=== PATIENT | female | born 1975 | race Caucasian/White ===

== ENCOUNTER 2017-08-24 20:07 | Emergency (ER) | payer SELFPAY ==
[2017-08-24 20:08] VITALS: BMI 24.0
--- NOTE | 2017-08-24 20:52 | C.PDOC ---
History Of Present Illness 42 year old female presents to the ED c/o back pain that is worse on her left side and radiates down to her knee for approximately 1 month. Patient states that during the past 3 days the pain got worse, she took Advil and Tylenol but with no significant relief. She denies any fall, trauma, injury, weakness, numbness, or urinary symptoms. Time Seen by Provider: 08/24/17 20:29 Chief Complaint (Nursing): Back Pain History Per: Patient History/Exam Limitations: no limitations Onset/Duration Of Symptoms: Days Current Symptoms Are (Timing): Still Present Quality Of Discomfort: "Pain" Previous Symptoms: Back Pain Associated Symptoms: None Exacerbating Factor(s): Movement Recent travel outside of the [place]: No Additional History Per: Patient Past Medical History Reviewed: Historical Data, Nursing Documentation, Vital Signs Vital Signs: Last Vital Signs Temp 97.2 F L 08/24/17 20:23 Pulse 84 08/24/17 20:23 Resp 14 08/24/17 20:23 BP 141/88 08/24/17 20:23 Pulse Ox 99 08/24/17 20:57 - Medical History PMH: Depression (brother recently ), HTN (htn runs in family; htn when last had sx) Other Surgeries: ovarian cystectomy - [facility] Procedures LOCAL DESTR OVA LES NEC (01/22/15) OTHER AND UNSPECIFIED VAGINAL HYSTERECTOMY (01/22/15) TOTAL UNILAT SALPINGECT (01/22/15) Family History: States: Unknown Family Hx - Social History Hx Tobacco Use: No Hx Alcohol Use: No Hx Substance Use: No - Immunization History Hx Tetanus Toxoid Vaccination: No Hx Influenza Vaccination: No Hx Pneumococcal Vaccination: No Review Of Systems Constitutional: Negative for: Fever Respiratory: Negative for: Shortness of Breath Gastrointestinal: Negative for: Abdominal Pain Genitourinary: Negative for: Dysuria, Frequency, Incontinence Musculoskeletal: Positive for: Back Pain Neurological: Negative for: Weakness, Numbness Physical Exam - Physical Exam Appears: Non-toxic, No Acute Distress Skin: Normal Color, Warm, Dry Head: Atraumatic, Normacephalic Eye(s): bilateral: Normal Inspection Oral Mucosa: Moist Neck: Normal ROM, Supple Chest: Symmetrical Cardiovascular: Rhythm Regular, No Murmur Respiratory: No Accessory Muscle Use Gastrointestinal/Abdominal: Soft, No Tenderness Back: Normal Inspection (no rash, no swelling, no ecchymosis), No CVA Tenderness , No Vertebral Tenderness, No Decreased ROM, Paraspinal Tenderness (left side) Extremity: Bilateral: Atraumatic, Normal Color And Temperature, Normal ROM Neurological/Psych: Oriented x3, Normal Speech, Normal Motor, Normal Sensation Gait: Steady ED Course And Treatment O2 Sat by Pulse Oximetry: 99 (On RA) Pulse Ox Interpretation: Normal Medical Decision Making Medical Decision Making: Impression : 42 y/o female with back pain for approximately 1 month, worsened in the past 3 days. based on history and exam, xray not indicated. Plan: * Toradol 30 mg IM given * Valium 5 mg PO given * UA ordered Progress: UA reviewed and WNL Re-eval: patient seated comfortably in no distress, talking on her cell phone. Patient reports the pain is mildly improved. patient is ambulatory without distress. . Patient feels comfortable going home and will be discharged. Patient given follow up instructions. Instructed to return to ER if symptoms worsen or new symptoms arise. Disposition Counseled Patient/Family Regarding: Diagnosis, Need For Followup, Rx Given - Disposition Referrals: Jaquelin Barreto MD [Staff Provider] - Disposition: HOME/ ROUTINE Disposition Time: 21:11 Condition: IMPROVED Additional Instructions: [place] medicamentos para el dolor segn sea necesario y relajantes musculares. Solo ten en cuenta que el relajante muscular puede causar somnolencia. Asmita un seguimiento con un mdico o clnica para recibir ms atencin Prescriptions: Cyclobenzaprine [Cyclobenzaprine HCl] 10 mg PO TID #21 tab Naproxen [Naprosyn] 1 tab PO BID PRN #25 tab PRN Reason: Pain Instructions: Sciatica (ED) Forms: [employer] (Slovak) Print Language: FRENCH - POA Present On Arrival: None - Clinical Impression Clinical Impression: Low back pain, Sciatic nerve pain - PA / PRODUCT MANAGENT INTERN / Resident Statement MD/DO has reviewed & agrees with the documentation as recorded. - Scribe Statement The provider has reviewed the documentation as recorded by the Scribe Keith Cortés All medical record entries made by the Scribe were at my direction and personally dictated by me. I have reviewed the chart and agree that the record accurately reflects my personal performance of the history, physical exam, medical decision making, and the department course for this patient. I have also personally directed, reviewed, and agree with the discharge instructions and disposition.
[2017-08-24 21:06] LABS: RBC URINE 1 /hpf (0-3); TRANSITIONAL EPITHIAL < 1 /hpf (0-3); URINE BACTERIA RARE (<OCC); URINE BILIRUBIN NEGATIVE (NEGATIVE); URINE BLOOD NEGATIVE (NEGATIVE); URINE COLOR Straw (YELLOW); URINE GLUCOSE (UA) NORMAL (Normal); URINE KETONE NEGATIVE (NEGATIVE); URINE LEUKOCYTE ESTERASE NEG Leu/uL (Negative); URINE PROTEIN NEGATIVE (NEGATIVE); URINE UROBILINOGEN NORMAL mg/dL (0.2-1.0); WBC URINE 1 /hpf (0-5)
[2017-08-24 21:42] VITALS: BP 131/91; PULSE 81; RESP 20; TEMP 98.1; O2SAT 98
== END 2017-08-24 21:41 | disposition home or self-care (01) ==
LOC: C.ER 20:07
DX: M54.40 Lumbago with sciatica, unspecified side (principal)
CPT/HCPCS: 81001; 84703; 96372; 99284; J1885